=== PATIENT | female | born 2000 | race Caucasian/White ===

== ENCOUNTER 2022-09-11 19:21 | Emergency (ER) | payer SELFPAY ==
[~2022-09-11] VITALS: Ht 165.1 cm; Wt 61.2 kg
--- NOTE | 2022-09-11 19:49 | NUR ---
TO ER BED 17. BIBFRIEND FROM HOME C/O VAGINAL PAIN SINCE 1500, HX IUD. PT STATES "PAIN IS 9/10" ON PAIN SCALE. RR EVEN AND NON LABORED. CONNECTED TO MONITOR. AWAITING MD PATEL
--- NOTE | 2022-09-11 19:51 | NUR ---
URINE COLLECTED AND SENT TO LAB
[2022-09-11] MEDS ORDERED: KETOROLAC TROMETHAMINE INJ 30 MG/ML VIAL IM ONE ×2 (20:00→23:00)
[2022-09-11] MEDS ORDERED: KETOROLAC TROMETHAMINE INJ 30 MG/ML VIAL ONE ×2 (20:04→22:59)
[2022-09-11 20:09] LABS: COLOR,URINE ORANGE (YELLOW)
[2022-09-11 20:16] LABS: SQUAMOUS EPITHELIAL CELL,UR 21-50 /HPF (None Seen)
[2022-09-11 20:17] LABS: MUCUS,URINE Many /LPF (None Seen)
[2022-09-11 20:18] LABS: BACTERIA,URINE 1+ /HPF (None Seen)
[2022-09-11] MEDS ORDERED: LIDOCAINE 2% JEL UROJET 10 ML MM ONE ×2 (22:42→23:00)
[2022-09-11] MEDS ORDERED: CEPH500T PO (23:03)
[2022-09-11] MEDS ORDERED: IBUP-1953 PO (23:03)
[2022-09-11] MEDS ORDERED: HYDR-3976 PO (23:30)
[2022-09-11 23:42] VITALS: BP 112/91
--- NOTE | 2022-09-11 23:42 | NUR ---
Patient discharged to home in stable condition. Written and verbal after care instructions given. Patient verbalizes understanding of instruction.
== END 2022-09-11 23:43 | disposition home or self-care (01) ==
LOC: ER 19:33
DX: N39.0 Urinary tract infection, site not specified (principal); R10.2 Pelvic and perineal pain; Z98.890 Other specified postprocedural states
CPT/HCPCS: 99284; 76856; 96372 ×2; 87077; 87070; 84703; 87186; 81001; 36415; 87210; 87110; J3490; J1885 ×2

== ENCOUNTER 2022-10-04 13:51 | Emergency (ER) | payer SELFPAY ==
[~2022-10-04] VITALS: Ht 165.1 cm; Wt 54.4 kg
[~2022-10-04 13:51] MED LIST: CEPH500T PO; HYDR-3976 PO; IBUP-1953 PO
--- NOTE | 2022-10-04 14:00 | NUR ---
BIBSELF C/O NAUSEA AND VOMITING SINCE LAST NIGHT. AMBULATORY, PLACED ON BED.
--- NOTE | 2022-10-04 14:15 | NUR ---
URINE SAMPLE SENT TO LAB
[2022-10-04] MEDS ORDERED: ONDANSETRON HCL/PF 4 MG/2 ML VIAL ONE (15:23)
[2022-10-04] MEDS ORDERED: FAMOTIDINE/PF INJ 20 MG/2 ML VIAL IV ONE ×2 (15:24→15:30)
[2022-10-04] MEDS ORDERED: MORPHINE SULFATE INJ 4 MG/ML DISP.SYRIN ONE (15:24)
--- NOTE | 2022-10-04 15:25 | NUR ---
BLOOD DRAWN AND SENT TO LAB
[2022-10-04] MEDS ORDERED: ONDANSETRON HCL/PF 4 MG/2 ML VIAL IVP ONE (15:30)
[2022-10-04] MEDS ORDERED: IV NS 0.9% 1,000 ML BAG IV ONE (15:30)
[2022-10-04] MEDS ORDERED: MORPHINE SULFATE INJ 2 MG/ML DISP.SYRIN IV ONE (15:30)
[2022-10-04 15:53] LABS: BASOPHILS % (AUTO) 0.5 % (0.0-2.0); HEMATOCRIT 36 % (33-45); HEMOGLOBIN 11.8 g/dL (11.5-14.8); LYMPHOCYTES # (AUTO) 1.4 K/uL (0.8-4.8); LYMPHOCYTES % (AUTO) 21.9 % (20.0-44.0); MEAN CORPUSCULAR HGB CONC 33 g/dl (31.0-36.0); MEAN CORPUSCULAR VOLUME 80 fL (82-100); MONOCYTES # (AUTO) 0.5 K/uL (0.1-1.30); NEUTROPHILS # (AUTO) 4.2 K/uL (1.8-8.9); NEUTROPHILS % (AUTO) 64.6 % (43.0-81.0); PLATELET COUNT (AUTO) 401 K/uL (150-450); RED BLOOD CELL COUNT(AUTO) 4.53 MIL/uL (4.0-5.2); WHITE BLOOD COUNT (AUTO) 6.5 K/uL (4.3-11.0)
[2022-10-04 16:12] LABS: ALBUMIN 3.5 g/dL (3.4-5.0); BILIRUBIN,DIRECT 0.1 mg/dL (0.0-0.2); BILIRUBIN,TOTAL 0.3 mg/dL (0.2-1.0); CALCIUM, SERUM 8.6 mg/dL (8.5-10.1); CREATININE 0.8 mg/dL (0.6-1.3); POTASSIUM 3.9 mmol/L (3.5-5.1); TOTAL PROTEIN, SERUM 7.2 g/dL (6.4-8.2)
[2022-10-04 17:22] LABS: BILIRUBIN,URINE NEGATIVE (NEGATIVE); COLOR,URINE YELLOW (YELLOW); LEUKOCYTE ESTERASE ,URINE 2+ (NEGATIVE); NITRITE, URINE POSITIVE (NEGATIVE); PROTEIN,URINE NEGATIVE (NEGATIVE); UGLUCOSE NEGATIVE (NEGATIVE); UROBILINOGEN,URINE 0.2 EU/dL (0.2)
[2022-10-04 17:36] LABS: BACTERIA,URINE Many /HPF (None Seen); RBC,URINE 0-2 /HPF (0-2); SQUAMOUS EPITHELIAL CELL,UR Few /HPF (None Seen); WBC,URINE TOO NUMEROUS TO COUN /HPF (0-3)
[2022-10-04] MEDS ORDERED: ONDA4TAB5 PO (17:42)
[2022-10-04] MEDS ORDERED: NITR100C6 PO (17:42)
[2022-10-04] MEDS ORDERED: OMEP20CA15 PO (17:42)
[2022-10-04] MEDS ORDERED: KETOROLAC TROMETHAMINE INJ 30 MG/ML VIAL IV ONE (18:00)
[2022-10-04] MEDS ORDERED: KETOROLAC TROMETHAMINE INJ 30 MG/ML VIAL ONE (18:10)
--- NOTE | 2022-10-04 18:35 | NUR ---
IV removed. Catheter intact and site benign. Pressure and 4x4 applied to site. No bleeding noted.Patient discharged to home in stable condition. Written and verbal after care instructions given. Patient verbalizes understanding of instruction.
[2022-10-04 19:33] VITALS: BP 105/63
== END 2022-10-04 18:35 | disposition home or self-care (01) ==
LOC: ER 13:57
DX: K22.6 Gastro-esophageal laceration-hemorrhage syndrome (principal); N39.0 Urinary tract infection, site not specified; R11.2 Nausea with vomiting, unspecified; Z98.890 Other specified postprocedural states; Z79.899 Other long term (current) drug therapy
CPT/HCPCS: 99284; 96374; 96375; 71045; 96361; 85025; 80048; 87077; 87086; 83690; 80076; 84703; 87186; 81001; 36415; J2270; J3490; J1885; J2405; J7030